=== PATIENT | female | born 1965 | race Caucasian/White ===

== ENCOUNTER 2016-11-20 17:29 | Emergency (ER) | payer BC, OTHER ==
[~2016-11-20] VITALS: Ht 157.5 cm; Wt 72.0 kg
[2016-11-20 17:41] VITALS: Ht 157.5 cm; Wt 72.0 kg
[2016-11-20 18:20] LABS: URINE BLOOD (Dip) POC 2+ (NEGATIVE)
[2016-11-20] MEDS ORDERED: FLUCONAZOLE 150 MG TAB PO ONE (18:30)
--- NOTE | 2016-11-20 19:17 | ERD ---
ER Documentation Chief Complaint Date/Time DATE: 11/20/16 TIME: 19:12 Chief Complaint Complains of vaginal discharge and chest congestion HPI 51-year-old female complaining of vaginal irritation and discharge 3-4 days. Patient used [id number] 7 day yeast infection treatment for 3 days then stop. In the last 2 days, she noticed thick vaginal discharge. States that he has a odor, but could not describe the odor. Denies pelvic pain. Denies dysuria. Denies fever or chills. Her last STD check was 4 month ago. Since then, she had a new sexual partner. She would like to have STD check today. ROS All systems reviewed and are negative except as per history of present illness. Allergies Allergies: Coded Allergies: No Known Allergy (Unverified , 11/20/16) PMhx/Soc Medical and Surgical Hx: pt denies Medical Hx, pt denies Surgical Hx Physical Exam Vitals Vital Signs Date Time Temp Pulse Resp B/P Pulse Ox O2 Delivery O2 Flow Rate FiO2 11/20/16 17:41 97.9 98 20 131/76 98 Physical Exam General: Well-developed, well-nourished, conscious and coherent, in no distress Skin: Warm and dry without rash, good texture and turgor Head: Normocephalic without evidence of trauma Eyes: Sclera and conjunctivae normal; pupils equal, round, and reactive to light; extraocular movements are intact Neck: Supple without meningismus or adenopathy. Carotids are equal. Trachea midline. No bruits or JVD Chest: Normal AP diameter. Good expansion without retractions. Nontender. Lungs are clear to auscultate bilaterally with good tidal volume Heart: Regular rate and rhythm. No murmur, rub, or gallops heard Abdomen: Soft and nontender without masses, guarding, or rebound. Bowel sounds are active. No hepatosplenomegaly Back: Without spinal or CVA tenderness Pelvis: Nontender to palpation and stable to compression : External genitalia without lesions or masses. Vaginal canal erythematous , with copious thick, clumpy discharge. Cervix normal, no cervical motion tenderness noted. Uterus nontender and normal size. No adnexal tenderness or masses noted. Extremities: Full range of motion. Good strength bilaterally. No clubbing, cyanosis, or edema. Peripheral pulses are intact. Sensation intact Neuro: Alert and oriented 4, GCS 15. Cranial nerves grossly intact. Motor and sensory exams nonfocal. Moves all extremities. Speech clear. Gait normal Results 24 hrs Laboratory Tests Test 11/20/16 18:24 Bedside Urine pH (LAB) 5.5 Bedside Urine Protein (LAB) Negative Bedside Urine Glucose (UA) Negative Bedside Urine Ketones (LAB) Negative Bedside Urine Blood 2+ Bedside Urine Nitrite (LAB) Negative Bedside Urine Leukocyte Esterase (L 1+ Current Medications Medications (Trade) Dose Ordered Sig/Te Route PRN Reason Start Time Stop Time Status Last Admin Dose Admin Fluconazole (Diflucan) 150 mg ONCE ONCE PO 11/20/16 18:30 11/20/16 18:31 DC 11/20/16 18:40 Procedures/MDM Well-appearing 52-year-old female presented to ED with vaginal irritation. Her exam findings are consistent with yeast vaginitis. Patient given Diflucan 150 mg p.o. in the ED. UA showed 1+ leukocyte, negative nitrite, 2+ blood. Since patient denies UTI symptoms, I opted not to treat for asymptomatic UTI. His urine sent out for GC chlamydia testing. I advised patient that we cannot do any other testing is here, but she may return to her clinic for further testing. Patient appears well, stable for discharge and outpatient management. Medical decision making shared with patient and family. Education provided to patient and family. Patient and family expressed understanding of the plan. Medications on discharge: None. Follow-up: Primary care provider in 2-3 days or return to ED if worse. Departure Diagnosis: Primary Impression: Yeast vaginitis Condition: Good Patient Instructions: Vaginal Infection: Yeast (Candidiasis) Additional Instructions: Call your primary care doctor TOMORROW for an appointment during the next 2-3 days.See the doctor sooner or return here if your condition worsens before your appointment time. CIERRA BUSCH NP Nov 20, 2016 19:17
== END 2016-11-20 18:49 | disposition home or self-care (01) ==
LOC: FTE 17:29
DX: N76.0 Acute vaginitis (principal)
CPT/HCPCS: 81003; 87591; Z7502; Z7610; 99284